=== PATIENT | female | born 1995 | race Caucasian/White ===

== ENCOUNTER 2017-07-20 02:06 | Emergency (ER) | payer MEDICAID ==
[~2017-07-20] VITALS: Ht 175.3 cm; Wt 102.0 kg
[2017-07-20 02:12] VITALS: BP 128/74
[2017-07-20 02:22] LABS: GLUCOSE COMMENT 2 Doctor Notified; GLUCOSE,POINT OF CARE 85 MG/DL (70-110)
== END 2017-07-20 02:54 | disposition home or self-care (01) ==
LOC: EMS 02:09
DX: R20.2 Paresthesia of skin (principal); F41.9 Anxiety disorder, unspecified; R07.9 Chest pain, unspecified; F12.90 Cannabis use, unspecified, uncomplicated
CPT/HCPCS: 82962; 93005; 99283

== ENCOUNTER 2021-12-28 10:11 | Emergency (ER) | payer MEDICAID, OTHER ==
[~2021-12-28] VITALS: Ht 175.3 cm; Wt 113.6 kg
[2021-12-28 12:06] LABS: BASOPHILS % (AUTO) 0.5 % (0.0-2.0); HEMATOCRIT 30.5 % (36-46); HEMOGLOBIN 8.9 g/dL (12.0-16.0); LYMPHOCYTES # (AUTO) 1.8 K/uL (1.0-4.8); LYMPHOCYTES % (AUTO) 23.2 % (22.0-44.0); MEAN CORPUSCULAR HEMOGLOBIN 16.4 pg (26.0-34.0); MEAN CORPUSCULAR HGB CONC 29.3 G/dL (31.0-37.0); MEAN CORPUSCULAR VOLUME 56 fL (80-100); MONOCYTES # (AUTO) 0.6 K/uL (0.1-1.0); MONOCYTES % (AUTO) 7.2 % (2.0-9.0); NEUTROPHILS # (AUTO) 5.2 K/uL (1.8-7.7); NEUTROPHILS % (AUTO) 65.1 % (40.0-70.0); PLATELET COUNT (AUTO) 572 K/uL (150-450); RED BLOOD CELL COUNT(AUTO) 5.42 MIL/uL (4.00-5.20); RED CELL DISTRIBUTION WIDTH 19.7 % (11.5-14.5)
[2021-12-28 12:08] LABS: ANION GAP 7 mmol/L (8-16); CALCIUM, TOTAL 9.1 mg/dL (8.8-10.5); CARBON DIOXIDE 26 mmol/L (22-29); CHLORIDE 103 mmol/L (98-107); CREATININE 0.53 mg/dL (0.60-1.30); GLUCOSE,RANDOM 91 mg/dL (70-110); POTASSIUM 4.2 mmol/L (3.5-5.1); SODIUM SERUM 136 mmol/L (136-145); UREA NITROGEN, BLOOD 6 mg/dL (7-18)
[2021-12-28 12:10] LABS: GLOMERULAR FILTR. RATE CALC > 60 mL/min (>60)
[2021-12-28 12:13] LABS: ALANINE AMINOTRANSFERASE 23 U/L (12-78); ALBUMIN 3.5 g/dL (3.4-5.0); ALKALINE PHOSPHATASE 109 U/L (46-116); ASPARTATE AMINOTRANSFERASE 17 U/L (15-37); BILIRUBIN,TOTAL 0.4 mg/dL (0.1-1.0); TOTAL PROTEIN, SERUM 8.3 g/dL (6.4-8.2)
[2021-12-28 12:59] LABS: PLATELET MORPHOLOGY COMMENT LARGE PLTS PRESENT
[2021-12-28 13:33] VITALS: BP 102/65
== END 2021-12-28 13:55 | disposition home or self-care (01) ==
LOC: EMS 10:11
DX: N64.4 Mastodynia (principal); R06.02 Shortness of breath
CPT/HCPCS: 71046; 80053; 84484; 85025; 93005; 99285; 36415-L1; 36415-TC